=== PATIENT | female | born 1965 | race Caucasian/White ===

== ENCOUNTER → 2017-05-29 | Outpatient (CLI) | payer OTHER ==
[~2017-05-29] MED LIST: CALCIUM600 MG PO; CLARITIN10 MG PO; CYMBALTA60 MG PO; FLONASE 0.05% N16 GM; LIPITOR TAB 2020 MG PO; TOPAMAX200 MG PO; TYLENOL WITH C1 EACH PO; ULTRAM50 MG PO
== END ==
LOC: OPSV2 05-28 09:00
PROVIDERS: Orthopaedic Surgery
DX: Z01.812 Encounter for preprocedural laboratory examination (principal); G56.01 Carpal tunnel syndrome, right upper limb; Z88.1 Allergy status to other antibiotic agents; Z88.5 Allergy status to narcotic agent; Z88.8 Allergy status to other drugs, medicaments and biological substances
CPT/HCPCS: 36415; 80048